=== PATIENT | female | born 1980 | race African-American/Black ===

== ENCOUNTER 2017-08-07 07:33 | Inpatient (IN) | payer OTHER ==
[~2017-08-07] VITALS: Ht 160 cm; Wt 70.3 kg
--- NOTE | 2017-08-07 07:53 | NUR ---
PT C/O OF COUGH WITH CHEST PAIN FOR A WEEK. PT STATES THAT SHE HAS BEEN COUGHING UP YELLOW, GREEN, AND SOMETIMES BLOOD TINGED SPUTUM. PT STATES THAT THE CHEST PAIN IS DUE TO THE COUGH AND GOT WORSE SINCE YESTERDAY. LUNG SOUNDS ARE CLEAR BUT DIMINISHED. RESPIRATIONS EVEN AND UNLABORED. NO ACUTE DISTRESS NOTED. MSE COMPLETED BY DR. MUKHERJEE. RT AT BEDSIDE FOR BREATHING TREATMENT.
--- NOTE | 2017-08-07 08:03 | NUR ---
RADIOLOGY AT BEDSIDE FOR DEEP
--- NOTE | 2017-08-07 08:05 | NUR ---
RADIOLOGY AT BEDSIDE FOR CHEST X-RAY.
[2017-08-07 08:12] LABS: PLATELET COUNT 97 x10^3mcL (130-400)
[2017-08-07 08:17] LABS: CALCIUM 8.4 mg/dL (8.5-10.1); CARBON DIOXIDE 25.6 mmol/L (21-32); CHLORIDE SERUM 104 mmol/L (98-107); CREATININE SERUM 0.7 mg/dL (0.6-1.0); GFR1 > 60 mL/min; GLUCOSE SERUM 93 mg/dL (74-106); POTASSIUM SERUM 4.1 mmol/L (3.5-5.1); SODIUM SERUM 137 mmol/L (136-145)
--- NOTE | 2017-08-07 09:21 | NUR ---
PT APPEARS TO BE RESTING COMFORTABLY. PATIENT COMPLAIN OF UPPER BACK PAIN 5/10 WHICH IS WORSENED BY MOVING HER LEFT ARM. RESPIRATIONS EVEN AND UNLABORED. NO ACUTE DISTRESS NOTED.
[2017-08-07 09:29] LABS: BAND NEUTROPHIL 0 % (0-10); BASOPHIL 1 % (0-2); METAMYELOCTE 1 % (0-2); MONOCYTE 13 % (0-7); SEGMENTED NEUTROPHILS 58 % (37-75)
[2017-08-07 09:30] LABS: PLATELET MORPHOLOGY PLATELETS DECREASED; rbc morphology (normal/abnorm) ABNORMAL (NORMAL)
[2017-08-07 09:31] LABS: ovalocyte/elliptocyte 1+
[2017-08-07 09:32] LABS: schistocyte (helmet cell) 1+; tear drop cell (dacryocyte) 1+
--- NOTE | 2017-08-07 09:32 | NUR ---
REPORT GIVEN TO KALEB ON MED/TELE.
[2017-08-07 09:49] LABS: ALBUMIN 3.7 g/dL (3.4-5.0); BILIRUBIN DIRECT 0.09 mg/dL (0.0-0.2); BILIRUBIN TOTAL 0.3 mg/dL (0.20-1.00)
--- NOTE | 2017-08-07 09:54 | NUR ---
RECEIVED PT FROM ER VIA [facility] ALERT AND ORIENTED X4. TELE #25, NSR 65. REPORTS TIGHTNESS TO MID CHEST RATED 4/10 THAT RADIATES TO MID BACK. STATES PAIN IS TOLERABLE. NO SOB. BREATHING EVEN AND UNLABORED ON RA. REPORTS COUGHING UP YELLOW GREEN SPUTUM YESTERDAY. DENIES ANY GI UPSET. VOIDS FREELY. SKIN CDI. INSTRUCTED TO USE CALL LIGHT WHEN IN NEED OF ANY ASSISTANCE.
[2017-08-07 09:58] LABS: T3 TOTAL 1.05 ng/mL
[2017-08-07 10:05] LABS: FREE T4 0.94 ng/dL (0.76-1.46); FREE THYROXINE INDEX 2.8 ug/dL (1.4-4.5); T4(THYROXINE) 8.8 ug/dL (4.7-13.3)
[2017-08-07 10:12] LABS: RED BLOOD CELLS 4.38 M/mm3 (4.10-5.10)
[2017-08-07 10:36] LABS: IRON 24 ug/dL (50-170); TOTAL IRON BINDING CAPACITY 497 ug/dL (250-450)
[2017-08-07 10:39] VITALS: BP 109/72
--- NOTE | 2017-08-07 12:30 | NUR ---
PT DENIES ANY PAIN AT THIS TIME. TORADOL IVP GIVEN EARLIER FOR CHEST PAIN.
[2017-08-07 12:38] VITALS: BP 108/57
[2017-08-07 13:00] VITALS: Ht 160 cm; Wt 70.3 kg
[2017-08-07 13:27] LABS: microscopic required? YES; urine erythrocyte 3+ (NEGATIVE)
[2017-08-07 13:39] LABS: AMPHETAMINE QUAL UR NONE DETECTED (NEG <=1000)
[2017-08-07 16:52] VITALS: BP 117/78
[2017-08-07 17:01] LABS: CHOLESTEROL/HDL RATIO 2.5
--- NOTE | 2017-08-07 20:36 | NUR ---
RECEIVED PT IN BED , AAOX4 NO ACUTE DISTRESS NOTED, PT DENY CHEST PAIN AT THE MOMENT ON TELE NUMBER 25 THAT SHOWS NSR , ABD SOFT BS ACTIVE ,PT'S ON MENSTRUAL PERIOD CYCLE C/O HEAVY BLEEDING , WILL CON'T TO MONITOR PT , PIV INTACT INFUSING WELL . CALL LIGHT WITHIB PT'S REACH WILL CON'T TO MONITOR AND ASSIST PT WITH CARE.
[2017-08-07 20:42] VITALS: BP 117/73
--- NOTE | 2017-08-08 01:14 | NUR ---
PT;S IN BED WITH EYES CLOSED , TELE NSR
[2017-08-08 05:58] VITALS: BP 111/68
--- NOTE | 2017-08-08 06:02 | NUR ---
I HAVE REVIEWED THE DATA COLLECTION BY RODNEY (NAME):IRENE RICHEY ENTERED ON (DATE/TIME):08/08/17 0605 I CONCUR WITH THE DATA AND ANY EXCEPTIONS OR COMMENTS ARE LISTED BELOW:
--- NOTE | 2017-08-08 06:22 | NUR ---
NO CHANGES OF CONDITION NOTED, ALL DUE MEDS GIVEN NO REACTTION NOTED , PT;S HAVING US DONE AT THE MOMENT , TELE NSR , PIV INTACT INFUSING WELL .
[2017-08-08 07:06] LABS: PLATELET COUNT 121 x10^3mcL (130-400); RED CELL DISTRIBUTION WIDTH 23.5 % (11.5-14.5)
[2017-08-08 07:12] LABS: CALCIUM 8.2 mg/dL (8.5-10.1); CARBON DIOXIDE 26.6 mmol/L (21-32); CHLORIDE SERUM 108 mmol/L (98-107); CREATININE SERUM 0.6 mg/dL (0.6-1.0); GFR1 > 60 mL/min; GLUCOSE SERUM 76 mg/dL (74-106); PHOSPHOROUS 2.9 mg/dL (2.5-4.9); POTASSIUM SERUM 3.7 mmol/L (3.5-5.1); SODIUM SERUM 140 mmol/L (136-145)
[2017-08-08 07:55] LABS: BAND NEUTROPHIL 2 % (0-10); BASOPHIL 0 % (0-2); MONOCYTE 10 % (0-7); SEGMENTED NEUTROPHILS 73 % (37-75)
[2017-08-08 07:56] LABS: PLATELET MORPHOLOGY PLATELETS DECREASED; rbc morphology (normal/abnorm) ABNORMAL (NORMAL)
[2017-08-08 07:58] LABS: ovalocyte/elliptocyte 1+; schistocyte (helmet cell) 1+; tear drop cell (dacryocyte) 1+
--- NOTE | 2017-08-08 08:00 | NUR ---
RC'D PT RESTING IN BED WITH NO APPARENT SIGNS OF DISTRESS. A/A/O/X4, SPEECH CLEAR AND APPROPRIATE. ON TELE 25 WITH NSR. DENIES CHEST PRESSURE/PAIN AT THIS TIME. PT REPORTS HAVING CHEST PAIN YESTERDAY. PALP PULSES, NO EDEMA NOTED. RESPIRATIONS EQUAL AND UNLABORED BILAT. LUNGS CLEAR TO AUSCULTATION. ON RA, DENIES SOB. ABDOMEN SOFT AND NONTENDER. ACTIVE BS. DENIES N/V. TOLERATES DIET. VOIDS FREELY, DENIES BURNING. AMBULATORY WITH BRP. RFA IV SALINE LOCKED. BED IN LOW POSITION. PT EDUCATED ON USING CALL LIGHT WHEN NEEDING ASSITANCE. CALL LIGHT IN REACH. WILL CONTINUE TO MONITOR.
[2017-08-08 10:50] VITALS: BP 104/66
[2017-08-08 14:00] VITALS: BP 107/64
[2017-08-08] MEDS ORDERED: ZYR10 PO (16:13)
[2017-08-08] MEDS ORDERED: PRILOSEC OTC20 M1 PO (16:13)
[2017-08-08] MEDS ORDERED: ROBITUSSIN COUG1 SGL PO (16:14)
[2017-08-08] MEDS ORDERED: IRON65 MG PO (16:15)
[2017-08-08 16:41] VITALS: BP 107/64
--- NOTE | 2017-08-08 17:40 | NUR ---
PT PROVIDED WITH DC HOME INSTRUCTIONS. GIVEN MEDICATION EDUCATION. MADE AWARE PRESCRIPTIONS HAVE BEEN SENT TO PT'S PHARMACY. MADE AWARE OF FOLLOW UP APPT WITH PCP. INSTRUCTED ON IMPORTANCE OF FOLLOWING MEDCATIONS ORDERED. MADE AWARE OF WORSENING SYMPTOMS AND SIGNS TO RETURN TO ED OR PRESENT TO PCP. PT VERBALIZED UNDERSTANDING OF INSTRUCTIONS. TELE AND IV DC'D, CATHETER INTACT. PT ESCORTED TO THE LOBBY BY RN WITH ALL PERSONAL BELONGINGS IN HAND FREE OF ANY APPARENT DISTRESS.
== END 2017-08-08 17:38 | disposition home or self-care (01) | DRG 243 ==
LOC: ED 07:33 → DU 09:11
PROVIDERS: Emergency Medicine; ADMIT Family Medicine
DX: K21.9 Gastro-esophageal reflux disease without esophagitis (principal); D69.6 Thrombocytopenia, unspecified; M94.0 Chondrocostal junction syndrome [Tietze]; I10 Essential (primary) hypertension; D64.9 Anemia, unspecified; R73.03 Prediabetes; D21.9 Benign neoplasm of connective and other soft tissue, unspecified; R31.9 Hematuria, unspecified; E83.51 Hypocalcemia
CPT/HCPCS: 84439; J1885; J2916; J3010; J7030; J7613; J7644; Q0092